=== PATIENT | male | born 1930 | race Hispanic/Latino ===

== ENCOUNTER 2017-07-29 19:56 | Emergency (ER) | payer MEDICARE ==
[2017-07-29 20:06] VITALS: BMI 20.9
[2017-07-29] MEDS ORDERED: Magnesium Sulfate 2 GM in Sodium Chloride 0.9% 100 ML IVPB ONE (20:11)
[2017-07-29 20:15] VITALS: TEMP 97.1
[2017-07-29] MEDS: Albuterol-Ipratrop 3 mg / 0.5 (3 ml) UD IH SCH ×3 (20:15→20:45)
[2017-07-29] MEDS: Albuterol-Ipratrop 3 mg / 0.5 (3 ml) UD ONE ×2 (20:35→21:18)
[2017-07-29 20:45] LABS: VENOUS BLOOD GAS BASE EXCESS 0.1 mmol/L (0.0-2.0); VENOUS BLOOD GAS PO2 44 mm/Hg (30-55); VENOUS BLOOD PH 7.28 (7.32-7.43)
[2017-07-29 20:48] LABS: BASO # 0.05 K/mm3 (0.0-2.0); BASO % 0.6 % (0.0-3.0); EOS # 1.1 (0.0-0.7); EOS % 13.5 % (1.5-5.0); GRAN # 3.96 (1.4-6.5); GRAN % 48.8 % (50.0-68.0); LYMPH # 2.5 (1.2-3.4); LYMPH % 30.5 % (22.0-35.0); MEAN CELL VOLUME 88.6 fl (80.0-105.0); MEAN CORPUSCULAR HEMOGLOBIN 27.3 pg (25.0-35.0); MEAN CORPUSCULAR HGB CONC 30.8 g/dl (31.0-37.0); MEAN PLATELET VOLUME 10.4 fl (7.0-11.0); MONO # 0.5 (0.1-0.6); MONO % 6.6 % (1.0-6.0); RBC 4.39 10^6/uL (3.5-6.1); RED CELL DISTRIBUTION WIDTH 14.9 % (11.5-14.5); WHITE BLOOD COUNT 8.1 10^3/ul (4.5-11.0)
[2017-07-29 21:00] LABS: ALB/GLOB RATIO 1.3 (1.1-1.8); ALT/SGPT 36 U/L (7-56); AST/SGOT 33 U/L (17-59); BLOOD UREA NITROGEN 13 mg/dL (7-21); CALCIUM 9.2 mg/dL (8.4-10.5); GFR AFRICAN-AMERICAN > 60; GFR NON-AFRICAN AMERICAN > 60
[2017-07-29 21:11] LABS: B-TYPE NATRIURETIC PEPTIDE 246 pg/mL (0-450); TROPONIN I < 0.01 ng/mL
--- NOTE | 2017-07-29 22:17 | ED PDOC ---
Arrival/HPI - General Chief Complaint: Shortness Of Breath Time Seen by Provider: 07/29/17 19:59 Historian: Patient - History of Present Illness Narrative History of Present Illness (Text): 07/29/17 19:59 86 year old male, whose past medical history includes COPD, [place] with bypass surgery, pneumonia, and colon cancer, presents to the emergency department complaining of COPD symptoms increasing for the past week. Patient reports she saw special education administrator and was given prednisone and zpack with little relief. Patient denies any fevers, cough, chills, chest pain, abdominal pain, nausea, vomiting, diarrhea, back pain, neck pain, urinary/bowel changes, headache, dizziness, or any other complaint. PMD: Dr. Bassett Time/Duration: 1 week Symptom Onset: Gradual Symptom Course: Worsening Activities at Onset: Light Context: Home Past Medical History - Provider Review Nursing Documentation Reviewed: Yes - Cardiac Hx Cardiac Disorders: Yes Hx Hypertension: Yes - Pulmonary Hx Respiratory Disorders: Yes Hx Asthma: Yes Hx Chronic Obstructive Pulmonary Disease (COPD): Yes - Neurological Hx Neurological Disorder: No - HEENT Hx HEENT Disorder: Yes (wears glasses) Hx Cataracts: Yes - Renal Hx Renal Disorder: No - Endocrine/Metabolic Hx Endocrine Disorders: No - Hematological/Oncological Hx Blood Disorders: No - Integumentary Hx Dermatological Disorder: No - Musculoskeletal/Rheumatological Hx Musculoskeletal Disorders: Yes Hx Arthritis: Yes Hx Falls: No - Gastrointestinal Hx Gastrointestinal Disorders: Yes Other/Comment: colon resection in 2010 for polyps - Genitourinary/Gynecological Hx Genitourinary Disorders: Yes Hx Prostate Problems: Yes (enlarged) - Psychiatric Hx Psychophysiologic Disorder: No Hx Depression: No Hx Emotional Abuse: No Hx Physical Abuse: No Hx Substance Use: No - Past Surgical History Past Surgical History: No Previous - Surgical History Hx Open Heart Surgery: Yes Other/Comment: colon resect 2010.. rt herniorraphy - Anesthesia Hx Anesthesia: Yes Hx Anesthesia Reactions: No Hx Malignant Hyperthermia: No - Suicidal Assessment Feels Threatened In Home Enviroment: No Family/Social History - Physician Review Nursing Documentation Reviewed: Yes Family/Social History: No Known Family HX Smoking Status: Former Smoker Hx Alcohol Use: No Hx Substance Use: No Hx Substance Use Treatment: No Allergies/Home Meds Allergies/Adverse Reactions: Allergies No Known Allergies Allergy (Verified 07/29/17 20:09) Home Medications: Home Meds Medication Instructions Recorded Confirmed Albuterol Sulfate 2 mg PO Q6H PRN 12/24/14 07/29/17 Metoprolol Succinate 50 mg PO DAILY 11/14/15 07/29/17 Fluticasone/Salmeterol [Advair 2 puff NEB BID 07/29/17 07/29/17 250-50 Diskus] Multivit-Min/FA/Lycopen/Lutein 1 tab PO DAILY 07/29/17 07/29/17 [Centrum Silver Tablet] Review of Systems - Physician Review All systems were reviewed & negative as marked: Yes - Review of Systems Constitutional: absent: Fevers, Other (Chills) Respiratory: SOB. absent: Cough Cardiovascular: absent: Chest Pain Gastrointestinal: absent: Abdominal Pain, Diarrhea, Nausea, Vomiting Genitourinary Male: absent: Dysuria, Frequency, Hematuria Musculoskeletal: absent: Back Pain, Neck Pain Neurological: absent: Headache, Dizziness Physical Exam Vital Signs Reviewed: Yes Vital Signs Temp Pulse Resp BP Pulse Ox 07/29/17 21:30 81 17 154/82 H 95 07/29/17 20:25 12 07/29/17 20:09 88 12 96 07/29/17 20:06 97.1 F L 89 26 H 167/103 H 95 Temperature: Afebrile Blood Pressure: Hypertensive Pulse: Regular Respiratory Rate: Normal Appearance: Positive for: Well-Appearing, Non-Toxic, Comfortable Pain Distress: None Mental Status: Positive for: Alert and Oriented X 3 - Systems Exam Head: Present: Atraumatic, Normocephalic Pupils: Present: PERRL Extroacular Muscles: Present: EOMI Conjunctiva: Present: Normal Mouth: Present: Moist Mucous Membranes Neck: Present: Normal Range of Motion Respiratory/Chest: Present: Wheezes (Mild expirtory wheeze right greater than left.), Other ((+)Well healed midline surgical scar on chested. (+) Barrel chested). No: Respiratory Distress, Accessory Muscle Use Cardiovascular: Present: Regular Rate and Rhythm, Normal S1, S2. No: Murmurs Abdomen: Present: Normal Bowel Sounds. No: Tenderness, Distention, Peritoneal Signs Back: Present: Normal Inspection Upper Extremity: Present: Normal Inspection. No: Cyanosis, Edema Lower Extremity: Present: Normal Inspection. No: Edema Neurological: Present: GCS=15, CN II-XII Intact, Speech Normal Skin: Present: Warm, Dry, Normal Color. No: Rashes Psychiatric: Present: Alert, Oriented x 3, Normal Insight, Normal Concentration Medical Decision Making ED Course and Treatment: 07/29/17 19:59 Impression: 86 year old male presents complaining of COPD symptoms increasing for the past week. Plan: -- VBG -- EKG -- Labs -- CXR -- Duoneb -- IV Fluids -- SOLU-Medrol -- Blood Culture -- Influenza A B -- Reassess and disposition Prior Visits: Notes and results from previous visits were reviewed. Patient was last seen in the emergency department on 01/29/16 presents complaining of worsening shortness of breath and wheezing that began yesterday. Patient was discharged. Progress Notes: 07/29/17 20:20 CXR Impression: As read by me, chronic changes, no acute infiltrates 07/29/17 23:05 On re-evaluation, patient feels better and is in no acute distress. Case discussed with PMD Dr. Olea who is aware and agrees with the plan. Patient will be discharged and recommended to follow up with Dr. Bassett in 2 days. - Lab Interpretations Lab Results: 07/29/17 20:30 07/29/17 20:30 Lab Results 07/29/17 20:35: pO2 44, VBG pH 7.28 L, VBG pCO2 60.0, VBG HCO3 28.2 H, VBG Total CO2 30.0 H, VBG O2 Sat (Calc) 79.3 H, VBG Base Excess 0.1, VBG Potassium 3.8, Glucose 135 H, Lactate 1.9, FiO2 21.0, Sodium 140.0, Chloride 108.0 H, Venous Blood Potassium 3.8 07/29/17 20:30: Influenza Typ A,B (EIA) Negative for flu a/b 07/29/17 20:30: Sodium 142, Potassium 3.9, Chloride 106, Carbon Dioxide 25, Anion Gap 14, BUN 13, Creatinine 0.6 L, Est GFR ( Amer) > 60, Est GFR ( Non-Af Amer) > 60, Random Glucose 129 H, Calcium 9.2, Total Bilirubin 0.5, AST 33, ALT 36, Alkaline Phosphatase 48, Lactate Dehydrogenase 489, Total Creatine Kinase 60, Troponin I < 0.01, NT-Pro-B Natriuret Pep 246, Total Protein 7.0, Albumin 4.0, Globulin 3.0, Albumin/Globulin Ratio 1.3 07/29/17 20:30: WBC 8.1, RBC 4.39, Hgb 12.0 L, Hct 38.9 L, MCV 88.6 D, MCH 27.3 , MCHC 30.8 L, RDW 14.9 H, Plt Count 211, MPV 10.4, Gran % 48.8 L, Lymph % (Auto ) 30.5, [place] % (Auto) 6.6 H, Eos % (Auto) 13.5 H, Baso % (Auto) 0.6, Gran # 3.96 , Lymph # 2.5, [place] # 0.5, Eos # 1.1 H, Baso # 0.05 I have reviewed the lab results: Yes - RAD Interpretation Radiology Orders: 07/29/17 20:10 CHEST PORTABLE [RAD] Stat - EKG Interpretation Interpreted by ED Physician: Yes Type: 12 lead EKG - Medication Orders Current Medication Orders: Discontinued Medications Albuterol/Ipratropium (Duoneb 3 Mg/0.5 Mg (3 Ml) Ud) 3 ml IH Q15M DEBBIE Stop: 07/29/17 20:46 Last Admin: 07/29/17 20:45 Dose: 3 ml Magnesium Sulfate 2 gm/ Sodium (Chloride) 104 mls @ 102 mls/hr IVPB ONCE ONE Stop: 07/29/17 21:12 Last Admin: 07/29/17 20:35 Dose: 102 mls/hr eMAR Start Stop Document 07/29/17 20:35 RG (Rec: 07/29/17 20:35 [email or web address]) Intravenous Solution Start Date 07/29/17 Start Time 20:35 Methylprednisolone (Solu-Medrol) 125 mg IVP STAT STA Stop: 07/29/17 20:10 Last Admin: 07/29/17 20:32 Dose: 125 mg IVP Administration Document 07/29/17 20:32 RG (Rec: 07/29/17 20:33 [email or web address]) Charges for Administration # of IVP Administrations 1 - Scribe Statement The provider has reviewed the documentation as recorded by the Consuelo Pavon Provider Scribe Attestation: All medical record entries made by the Scribe were at my direction and personally dictated by me. I have reviewed the chart and agree that the record accurately reflects my personal performance of the history, physical exam, medical decision making, and the department course for this patient. I have also personally directed, reviewed, and agree with the discharge instructions and disposition. Disposition/Present on Arrival - Present on Arrival Any Indicators Present on Arrival: No History of DVT/PE: No History of Uncontrolled Diabetes: No Urinary Catheter: No History of Decub. Ulcer: No History Surgical Site Infection Following: None - Disposition Have Diagnosis and Disposition been Completed?: Yes Diagnosis: COPD exacerbation Disposition: HOME/ ROUTINE Disposition Time: 21:10 Condition: IMPROVED Discharge Instructions (ExitCare): COPD (Chronic Obstructive Pulmonary Disease ) (ED) Additional Instructions: Thank you for letting us take care of you today. The emergency medical care you received today was directed at your acute symptoms. If you were prescribed any medication, please fill it and take as directed. It may take several days for your symptoms to resolve. Return to the Emergency Department if your symptoms worsen, do not improve, or if you have any other problems. Please contact your doctor or call one of the physicians/clinics you have been referred to that are listed on the Patient Visit Information form that is included in your discharge packet. Bring any paperwork you were given at discharge with you along with any medications you are taking to your follow up visit. Our treatment cannot replace ongoing medical care by a primary care provider (PCP) outside of the emergency department. Thank you for allowing the [facility] team to be part of your care today. Follow up with Dr. Bassett in 2-3 days for re-evaluation and further management. Prescriptions: predniSONE [Prednisone] 40 mg PO DAILY #10 tab Referrals: Nae Bassett MD [Primary Care Provider] - Follow up with primary Forms: [employer] (Greenlandic)
[2017-07-30 00:38] VITALS: BP 154/82; PULSE 81; RESP 17; O2SAT 95
--- NOTE | 2017-07-30 08:27 | RAD ---
HISTORY: r/o infiltrate COMPARISON: 06/28/2017. FINDINGS: LUNGS: The lungs are well inflated. There is diffuse pulmonary venous congestion. No focal consolidation. PLEURA: No significant pleural effusion identified, no pneumothorax apparent. CARDIOVASCULAR: There is mild cardiomegaly. Status post CABG. OSSEOUS STRUCTURES: No significant abnormalities. VISUALIZED UPPER ABDOMEN: Normal. OTHER FINDINGS: None. IMPRESSION: Mild cardiomegaly and pulmonary venous congestion. No focal consolidation.
--- NOTE | 2017-07-30 16:02 | CARD ---
APPROVED REPORT EKG Measurement Heart [id number] <Conclusion> Sinus rhythm with PVCs Possible Left atrial enlargement Borderline ECG
== END 2017-07-29 23:06 | disposition home or self-care (01) ==
LOC: ED 19:56
DX: J44.1 Chronic obstructive pulmonary disease with (acute) exacerbation (principal); I10 Essential (primary) hypertension; Z87.891 Personal history of nicotine dependence
CPT/HCPCS: 71045; 80053; 82550; 82803; 83615; 83880; 84484; 85025; 87040; 87804; 93005; 94640; 96374; 99284; J2930; J3475

== ENCOUNTER 2018-01-24 07:42 | Emergency (ER) | payer MEDICARE ==
[2018-01-24 07:44] VITALS: BMI 21.2
[2018-01-24] MEDS: Albuterol-Ipratrop 3 mg / 0.5 (3 ml) UD IH SCH ×3 (08:00→08:21)
--- NOTE | 2018-01-24 08:03 | ED PDOC ---
Arrival/HPI - General Historian: Patient - History of Present Illness Time/Duration: < week Symptom Onset: Gradual Symptom Course: Unchanged Quality: Tightness <Vanna Hughes - Last Filed: 01/24/18 08:57> <Simone Bradford - Last Filed: 01/24/18 09:20> - General Chief Complaint: Shortness Of Breath Time Seen by Provider: 01/24/18 07:44 - History of Present Illness Narrative History of Present Illness (Text): 01/24/18 08:00 Patient is a 87 year old male with past medical history of COPD, [place], Colon CA s/ p resection presents to the ED for shortness of breath that started either Tuesday or Tuesday. Patient states that he has been intermittently short of breath with no improvement with nebulizer treatments. Shortness of breath is worse with ambulation. Admits to having a non productive cough. Denies headaches , dizziness, cp, palpitation, abdominal pain, urinary symptoms, changes in bowel habits. (Vanna Hughes) Past Medical History - Provider Review Nursing Documentation Reviewed: Yes - Infectious Disease Hx of Infectious Diseases: None - Cardiac Hx Cardiac Disorders: Yes Hx Hypertension: Yes - Pulmonary Hx Respiratory Disorders: Yes Hx Asthma: Yes Hx Chronic Obstructive Pulmonary Disease (COPD): Yes - Neurological Hx Neurological Disorder: No - HEENT Hx HEENT Disorder: Yes (wears glasses) Hx Cataracts: Yes - Renal Hx Renal Disorder: No - Endocrine/Metabolic Hx Endocrine Disorders: No - Hematological/Oncological Hx Blood Disorders: No - Integumentary Hx Dermatological Disorder: No - Musculoskeletal/Rheumatological Hx Musculoskeletal Disorders: Yes Hx Arthritis: Yes Hx Falls: No - Gastrointestinal Hx Gastrointestinal Disorders: Yes Other/Comment: colon resection in 2010 for polyps - Genitourinary/Gynecological Hx Genitourinary Disorders: Yes Hx Prostate Problems: Yes (enlarged) - Psychiatric Hx Psychophysiologic Disorder: No Hx Depression: No Hx Emotional Abuse: No Hx Physical Abuse: No Hx Substance Use: No - Past Surgical History Past Surgical History: No Previous - Surgical History Hx Open Heart Surgery: Yes Other/Comment: colon resect 2010.. rt herniorraphy - Anesthesia Hx Anesthesia: Yes Hx Anesthesia Reactions: No Hx Malignant Hyperthermia: No - Suicidal Assessment Feels Threatened In Home Enviroment: No <Vanna Hughes - Last Filed: 01/24/18 08:57> Family/Social History - Physician Review Nursing Documentation Reviewed: Yes Family/Social History: No Known Family HX Smoking Status: Former Smoker Hx Alcohol Use: No Hx Substance Use: No Hx Substance Use Treatment: No <Vanna Hughes - Last Filed: 01/24/18 08:57> Allergies/Home Meds <Vanna Hughes - Last Filed: 01/24/18 08:57> <Simone Bradford - Last Filed: 01/24/18 09:20> Allergies/Adverse Reactions: Allergies No Known Allergies Allergy (Verified 07/29/17 20:09) Home Medications: Home Meds Medication Instructions Recorded Confirmed Albuterol Sulfate 2 mg PO Q6H PRN 12/24/14 07/29/17 Metoprolol Succinate 50 mg PO DAILY 11/14/15 07/29/17 Fluticasone/Salmeterol [Advair 2 puff NEB BID 07/29/17 07/29/17 250-50 Diskus] Multivit-Min/FA/Lycopen/Lutein 1 tab PO DAILY 07/29/17 07/29/17 [Centrum Silver Tablet] Review of Systems - Physician Review All systems were reviewed & negative as marked: Yes - Review of Systems Constitutional: absent: Fatigue, Fevers Eyes: absent: Vision Changes ENT: absent: Hearing Changes Respiratory: SOB, Cough, Wheezing. absent: Sputum Cardiovascular: absent: Chest Pain, Palpitations, Edema Gastrointestinal: absent: Abdominal Pain, Constipation, Diarrhea, Nausea, Vomiting Genitourinary Male: absent: Dysuria Neurological: absent: Headache, Dizziness <Vanna Hughes - Last Filed: 01/24/18 08:57> Physical Exam Vital Signs Reviewed: Yes Temperature: Afebrile Blood Pressure: Normal Pulse: Regular Respiratory Rate: Normal Appearance: Positive for: Well-Appearing, Non-Toxic Pain Distress: Mild Mental Status: Positive for: Alert and Oriented X 3 - Systems Exam Head: Present: Atraumatic, Normocephalic Pupils: Present: PERRL Extroacular Muscles: Present: EOMI Conjunctiva: Present: Normal Mouth: Present: Moist Mucous Membranes Neck: Present: Normal Range of Motion Respiratory/Chest: Present: Wheezes. No: Decreased Breath Sounds (Expiratory wheezing in all lung walsh), Rales, Retracting, Rhonchi Cardiovascular: Present: Regular Rate and Rhythm, Normal S1, S2 Abdomen: Present: Normal Bowel Sounds. No: Tenderness Upper Extremity: Present: Normal Inspection Lower Extremity: Present: Normal Inspection, NORMAL PULSES. No: Edema, CALF TENDERNESS Skin: Present: Warm, Dry, Normal Color Psychiatric: Present: Alert, Oriented x 3 <Vanna Hughes - Last Filed: 01/24/18 08:57> <Simone Bradford - Last Filed: 01/24/18 09:20> Vital Signs Temp Pulse Resp BP Pulse Ox 01/24/18 07:44 97.7 F 73 20 135/83 97 Medical Decision Making Re-evaluation Time: 08:48 Reassessment Condition: Improved - Lab Interpretations I have reviewed the lab results: Yes - RAD Interpretation Ditch Cleaner: Radiologist - EKG Interpretation Interpreted by ED Physician: Yes Type: 12 lead EKG <Vanna Hughes - Last Filed: 01/24/18 08:57> <Simone Bradford - Last Filed: 01/24/18 09:20> ED Course and Treatment: 01/24/18 08:28 CXR reviewed - no infiltrates, no pulmonary edema or consolidations appreciated 01/24/18 08:48 Labs reviewed, patient is feeling better after receiving Solumedrol and Duonbes treatment 01/24/18 08:[address] Call [address] out to [address] Bassett, will have patient follow up with him in the office. (Vanna Hughes) 01/24/18 In agreement with resident note, which includes further HPI details. Patient was seen and evaluated with resident, came up with plan and treatment together. 87 y/o M c PMHx COPD p/w shortness of breath which he states feels the same as prior COPD exacerbations. Denies chest pain, leg swelling, or fever. On exam, wheezing diffusely. Patient felt much better after treatments. I called Dr. Bassett to inform him of patient's arrival and discharge. EKG NSR 80 bpm, no ST/T wave changes. (Simone Bradford) - Lab Interpretations Lab Results: 01/24/18 08:15 01/24/18 08:15 Lab Results 01/24/18 08:15: Sodium 142, Potassium 3.8, Chloride 109 H, Carbon Dioxide 25, Anion Gap 12, BUN 13, Creatinine 0.5 L, Est GFR ( Amer) > 60, Est GFR ( Non-Af Amer) > 60, Random Glucose 95, Calcium 8.8, Total Bilirubin 0.9, AST 30, ALT 33, Alkaline Phosphatase 49, Total Creatine Kinase 49, Troponin I < 0.01, NT -Pro-B Natriuret Pep 244, Total Protein 6.7, Albumin 3.8, Globulin 2.9, Albumin/ Globulin Ratio 1.3 01/24/18 08:15: WBC 6.9, RBC 4.29, Hgb 11.2 L, Hct 35.2 L, MCV 82.1 D, MCH 26.1 , MCHC 31.8, RDW 16.1 H, Plt Count 235, MPV 10.0, Gran % 48.7 L, Lymph % (Auto) 27.9, [place] % (Auto) 8.5 H, Eos % (Auto) 14.3 H, Baso % (Auto) 0.6, Gran # 3.37, Lymph # (Auto) 1.9, [place] # (Auto) 0.6, Eos # (Auto) 1.0 H, Baso # (Auto) 0.04 - RAD Interpretation Narrative RAD Interpretations (Text): CXR: No active disease (Vanna Hughes) Radiology Orders: 01/24/18 07:59 CXR [CHEST PORTABLE] [RAD] Stat - EKG Interpretation EKG Interpretation (Text): 01/24/18 08:52 EKG - NSR with no ST-T wave changes (Vanna Hughes) - Medication Orders Current Medication Orders: Discontinued Medications Albuterol/Ipratropium (Duoneb 3 Mg/0.5 Mg (3 Ml) Ud) 3 ml IH Q15M DEBBIE Stop: 01/24/18 08:46 Last Admin: 01/24/18 08:21 Dose: 3 ml Methylprednisolone (Solu-Medrol) 125 mg IVP STAT STA Stop: 01/24/18 08:15 Last Admin: 01/24/18 08:22 Dose: 125 mg IVP Administration Document 01/24/18 08:22 [place]ST[place]O (Rec: 01/24/18 08:22 [place]STILLO [id number]) Charges for Administration # of IVP Administrations 1 <Vanna Hughes - Last Filed: 01/24/18 08:57> - PA / CREATIVE ENGAGEMENT DIRECTOR / Resident Statement /DO has reviewed & agrees with the documentation as recorded. MD/ has examined the patient and agrees with the treatment plan. - Scribe Statement The provider has reviewed the documentation as recorded by the Scribe <Simone Bradford - Last Filed: 01/24/18 09:20> - Scribe Statement Tomasa Pedro Provider Scribe Attestation: All medical record entries made by the Scribe were at my direction and personally dictated by me. I have reviewed the chart and agree that the record accurately reflects my personal performance of the history, physical exam, medical decision making, and the department course for this patient. I have also personally directed, reviewed, and agree with the discharge instructions and disposition. (Simone Bradford) Disposition/Present on Arrival - Present on Arrival Any Indicators Present on Arrival: No History of DVT/PE: No History of Uncontrolled Diabetes: No Urinary Catheter: No History of Decub. Ulcer: No History Surgical Site Infection Following: None - Disposition Have Diagnosis and Disposition been Completed?: Yes Disposition Time: 08:50 Patient Plan: Discharge <Vanna Hughes - Last Filed: 01/24/18 08:57> <Simone Bradford - Last Filed: 01/24/18 09:20> - Disposition Diagnosis: COPD exacerbation Disposition: HOME/ ROUTINE Patient Problems: Current Active Problems Problem Status Onset COPD exacerbation Acute Condition: STABLE Discharge Instructions (ExitCare): Chronic Obstructive Pulmonary Disease (COPD) , Including Emphysema Prescriptions: predniSONE [Prednisone] 60 mg PO DAILY #4 tab Referrals: Nae Bassett MD [Family Provider] - Follow up with primary Jeremi Allan MD [Staff Provider] - Follow up with primary Forms: [employer] (Romanian)
[2018-01-24 08:30] LABS: BASO # 0.04 K/mm3 (0.0-2.0); BASO % 0.6 % (0.0-3.0); EOS % 14.3 % (1.5-5.0); GRAN # 3.37 (1.4-6.5); GRAN % 48.7 % (50.0-68.0); HEMOGLOBIN 11.2 g/dL (14.0-18.0); LYMPH # 1.9 (1.2-3.4); LYMPH % 27.9 % (22.0-35.0); MEAN CELL VOLUME 82.1 fl (80.0-105.0); MEAN CORPUSCULAR HEMOGLOBIN 26.1 pg (25.0-35.0); MEAN CORPUSCULAR HGB CONC 31.8 g/dl (31.0-37.0); MONO # 0.6 (0.1-0.6); MONO % 8.5 % (1.0-6.0); RBC 4.29 10^6/uL (3.5-6.1); RED CELL DISTRIBUTION WIDTH 16.1 % (11.5-14.5); WHITE BLOOD COUNT 6.9 10^3/ul (4.5-11.0)
[2018-01-24 08:35] LABS: ALB/GLOB RATIO 1.3 (1.1-1.8); ALBUMIN 3.8 g/dL (3.0-4.8); ALT/SGPT 33 U/L (7-56); AST/SGOT 30 U/L (17-59); BLOOD UREA NITROGEN 13 mg/dL (7-21); CALCIUM 8.8 mg/dL (8.4-10.5); GFR AFRICAN-AMERICAN > 60; GFR NON-AFRICAN AMERICAN > 60
--- NOTE | 2018-01-24 08:43 | RAD ---
Date of service: 01/24/2018 HISTORY: sob COMPARISON: 07/29/2017 FINDINGS: LUNGS: No active pulmonary disease. PLEURA: No significant pleural effusion identified, no pneumothorax apparent. CARDIOVASCULAR: Sternotomy wires. No congestive change. Normal heart size. OSSEOUS STRUCTURES: No significant abnormalities. VISUALIZED UPPER ABDOMEN: Normal. OTHER FINDINGS: None. IMPRESSION: No active disease.
[2018-01-24 08:46] LABS: B-TYPE NATRIURETIC PEPTIDE 244 pg/mL (0-450); TROPONIN I < 0.01 ng/mL
[2018-01-24 09:31] VITALS: BP 146/77; PULSE 78; RESP 18; TEMP 98; O2SAT 98
--- NOTE | 2018-01-24 16:24 | CARD ---
APPROVED REPORT Date of service: 01/24/2018 EKG Measurement Heart [id number] <Conclusion> Normal sinus rhythm Normal ECG
== END 2018-01-24 09:31 | disposition home or self-care (01) ==
LOC: ED 07:42
DX: J44.1 Chronic obstructive pulmonary disease with (acute) exacerbation (principal); I10 Essential (primary) hypertension; Z87.891 Personal history of nicotine dependence
CPT/HCPCS: 71045; 80053; 82550; 83880; 84484; 85025; 93005; 96374; 99284; J2930

== ENCOUNTER 2018-07-14 08:06 | Outpatient (CLI) | payer MEDICARE | END 2018-07-14 08:07 | disposition home or self-care (01) | LOC: RAD 08:06 ==